=== PATIENT | female | born 1985 | race Caucasian/White ===

== ENCOUNTER 2016-07-10 10:07 | Emergency (ER) | payer SELFPAY ==
[~2016-07-10] VITALS: Ht 175.3 cm; Wt 100.0 kg
[~2016-07-10 10:07] MED LIST: CLON0.1T PO; GABA600T PO; IBUP800T23 PO; PROZ40CA PO; TRAZ300T2 PO
[2016-07-10 10:30] VITALS: BP 137/88; PULSE 86; RESP 18; TEMP 97.8; O2SAT 98
[2016-07-10] MEDS ORDERED: BUPIVACAINE HCL PF 0.25% 10 ML VIAL INFIL ONE (17:00)
[2016-07-10] MEDS ORDERED: KETOROLAC TROMETHAMINE 60 MG/2 ML (IM) VIAL IM ONE (17:00)
[2016-07-10] MEDS ORDERED: BUPIVACAINE HCL PF 0.25% 30 ML VIAL INFIL ONE (17:15)
[2016-07-10] MEDS ORDERED: PENI500T PO (18:45)
[2016-07-10] MEDS ORDERED: KETO10 PO (18:45)
--- NOTE | 2016-07-10 18:45 | PD ---
HPI Chief Complaint: Headache Time Seen by Provider: 16:41 Travel History International Travel<30 days: No Contact w/Intl Traveler<30days: No Traveled to known affect area: No History of Present Illness HPI Patient is a 31-year-old female complaining of pain to the left side of her jaw radiating up into her ear. She says this been going on for the past 4 days. She says she has some pain with swallowing, pain with eating. She has been taking naproxen without much relief of her pain. She denies fever or chills. She denies any coughing or congestion. PFSH Past Medical History Anemia: Yes Asthma: Yes Anxiety: Yes Depression: Yes Cardiovascular Problems: Yes (HTN) High Cholesterol: Yes Diminished Hearing: No Headaches: Yes Hypertension: Yes Neurologic: Yes (HX OF HEAD INJURY A CHILD) Respiratory: Yes Immunizations Current: Yes Seizures: Yes (PT REPORTS HAVING SEIZURES SINCE AGE 17, IS TAKING NO MEDS) ?: Not : 5 Para: 4 Miscarriage: 1 Past Surgical History Hysterectomy: Yes Neurologic Surgery: Yes (SPINAL TAP, CONCRETE PLASTER REMOVED FROM SKULL ) Social History Alcohol Use: No Tobacco Use: Yes (07/09 PPD) Substance Use: No Allergies-Medications (Allergen,Severity, Reaction): Coded Allergies: Aspirin (Verified Allergy, Severe, WHEEZING, SOB, 06/16/16) Darvocet-N 100 (Verified Allergy, Severe, Wheezing, SOB, 06/16/16) Reported Meds & Prescriptions Reported Meds & Active Scripts Active Penicillin V Potassium 500 Mg Tab 500 Mg PO Q6H 7 Days Ketorolac (Ketorolac Tromethamine) 10 Mg Tab 10 Mg PO Q6HR PRN Reported Ibuprofen 800 Mg Tab 800 Mg PO BID Trazodone (Trazodone HCl) 300 Mg Tab 200 Mg PO HS Prozac (Fluoxetine HCl) 40 Mg Cap 40 Mg PO DAILY Clonidine (Clonidine HCl) 0.1 Mg Tab 0.1 Mg PO DAILY Gabapentin 600 Mg Tab 600 Mg PO BID Review of Systems Except as stated in HPI: all other systems reviewed are Neg General / Constitutional: No: Fever, Chills Eyes: No: Blurred Vision HENT: Positive: Dental Difficulties Cardiovascular: No: Chest Pain or Discomfort Respiratory: No: Shortness of Breath Gastrointestinal: No: Nausea, Vomiting Genitourinary: No: Dysuria Skin: No Rash, No Change in Pigmentation Physical Exam Narrative GENERAL: Awake and alert in no acute distress. SKIN: Warm and dry. HEAD: Atraumatic. Normocephalic. EYES: Pupils equal and round. No scleral icterus. No injection or drainage. ENT: No nasal bleeding or discharge. Broken teeth on the left side of the mouth. No signs of abscess. NECK: Trachea midline. No JVD. CARDIOVASCULAR: Regular rate and rhythm. No murmur appreciated. RESPIRATORY: No accessory muscle use. Clear to auscultation. Breath sounds equal bilaterally. NEUROLOGICAL: Awake and alert. No obvious cranial nerve deficits. Motor grossly within normal limits. Normal speech. PSYCHIATRIC: Appropriate mood and affect; insight and judgment normal. Data Data Last Documented VS Vital Signs Date Time Temp Pulse Resp B/P Pulse Ox O2 Delivery O2 Flow Rate FiO2 07/10/16 19:05 79 18 147/79 98 07/10/16 19:00 Room Air 07/10/16 10:30 97.8 Orders Ketorolac Inj (Toradol Inj) (07/10/16 17:00) Bupivacaine Pf 0.25% Inj (Marcaine Pf 0. (07/10/16 17:00) Bupivacaine Pf 0.25% Inj (Marcaine Pf 0. (07/10/16 17:15) MDM Medical Decision Making Medical Screen Exam Complete: Yes Emergency Medical Condition: Yes Medical Record Reviewed: Yes Differential Diagnosis Dental caries versus dental fracture versus dental abscess versus dental infection Narrative Course Patient is a 31-year-old female who comes in complaining of dental pain. Exam shows broken teeth. No signs of abscess. Patient does not want any narcotic pain medication. Dental block performed by JOLIE. Patient given prescription for antibiotics. Advised she needs to follow-up with a dentist. Advised to return to the ED as needed for any worsening symptoms. Diagnosis Primary Impression: Dental infection Patient Instructions: Dental Abscess (ED), General Instructions Additional Instructions: Follow up with a dentist. Return as needed for any worsening symptoms. Scripts Penicillin V Potassium 500 Mg [id number] Mg PO Q6H 7 Days Ref 0 Prov:Karolina Davenport MD 07/10/16 Ketorolac 10 Mg Tab10 Mg PO Q6HR PRN (PAIN) #15 TAB Ref 0 Prov:Karolina Davenport MD 07/10/16 Disposition: 01 DISCHARGE HOME Condition: Stable Karolina Davenport MD Jul 10, 2016 18:45
[2016-07-10 19:05] VITALS: BP 147/79
--- NOTE | 2016-07-10 19:09 | PD ---
Physical Exam Date Seen by Provider: Jul 10, 2016 Time Seen by Provider: 19:05 Data Data Last Documented VS Vital Signs Date Time Temp Pulse Resp B/P Pulse Ox O2 Delivery O2 Flow Rate FiO2 07/10/16 19:05 79 18 147/79 98 07/10/16 19:00 Room Air 07/10/16 10:30 97.8 Orders Ketorolac Inj (Toradol Inj) (07/10/16 17:00) Bupivacaine Pf 0.25% Inj (Marcaine Pf 0. (07/10/16 17:00) Bupivacaine Pf 0.25% Inj (Marcaine Pf 0. (07/10/16 17:15) MDM Supervised Visit with ANGELINA: No Narrative Course I was asked by Dr. Davenport to administer a dental block to this patient with lower left dental pain. Please see her note for full history and physical. On my exam the patient is alert, oriented. She complains of left lower dental pain. No trismus. Airway patent. Uvula midline. Dental block was administered. Please see my procedure note for details. Dr. Davenport retains care of this patient. Please see her note for disposition. Procedures Procedure Narrative Inferior alveolar nerve block: 27-gauge needle was inserted on the medial aspect of the mandibular ramus. 3 cc of 0.25% Marcaine was instilled. The patient endorsed relief of pain within 15-20 seconds. Diagnosis Primary Impression: Dental infection Patient Instructions: General Instructions, Dental Abscess (ED) Departure Forms: Tests/Procedures Additional Instruction: Follow up with a dentist. Return as needed for any worsening symptoms. Scripts Penicillin V Potassium 500 Mg [id number] Mg PO Q6H 7 Days Ref 0 Prov:Karolina Davenport MD 07/10/16 Ketorolac 10 Mg Tab10 Mg PO Q6HR PRN (PAIN) #15 TAB Ref 0 Prov:Karolina Davenport MD 07/10/16 Disposition: 01 DISCHARGE HOME Condition: Stable Ami Lorenz Jul 10, 2016 19:09
== END 2016-07-10 19:06 | disposition home or self-care (01) ==
LOC: NEPE 10:07
DX: K04.7 Periapical abscess without sinus (principal); F17.210 Nicotine dependence, cigarettes, uncomplicated
CPT/HCPCS: 96372; 99283; J1885

== ENCOUNTER 2016-12-09 16:44 | Emergency (ER) | payer SELFPAY ==
[~2016-12-09] VITALS: Ht 170.2 cm; Wt 112.0 kg
[~2016-12-09 16:44] MED LIST changes: +KETO10 PO; +PENI500T PO
[2016-12-09 16:49] VITALS: BP 130/94; PULSE 94; RESP 16; TEMP 97.9; O2SAT 97
[2016-12-09] MEDS ORDERED: SODIUM CHLOR 0.9% 1000 ML INJ 1,000 ML IV SCH (17:06)
[2016-12-09 17:07] LABS: BLOOD, URINE LARGE (NEG); GLUCOSE,URINE NEG (NEG); KETONE, URINE NEG (NEG); NITRITE,URINE NEG (NEG); PH, URINE 5.5 (5.0-8.5)
[2016-12-09 17:10] LABS: METHOD OF COLLECTION CLEAN CATCH; URINE COLOR YELLOW (YELLW/STRAW)
[2016-12-09 17:11] LABS: COMMENT (UR) CULTURE INDICATED; CULTURE IF INDICATED CULTURE INDICATED
[2016-12-09] MEDS ORDERED: SODIUM CHLORIDE 0.9% FLUSH 10 ML FLUSH IV FLUSH PRN (17:15)
[2016-12-09] MEDS ORDERED: ONDANSETRON HCL 4 MG/2 ML VIAL IVP ONE (17:15)
[2016-12-09] MEDS ORDERED: ACETAMINOPHEN 325 MG TAB PO ONE (17:15)
--- NOTE | 2016-12-09 17:38 | PD ---
HPI Chief Complaint: Complaint Time Seen by Provider: 16:54 Travel History International Travel<30 days: No Contact w/Intl Traveler<30days: No Traveled to known affect area: No History of Present Illness HPI Patient is a 31-year-old female presents emergency department with dysuria for the past week followed by right greater than left flank pain. Patient states she's also noticed some blood in her urine. She has notable history of a hysterectomy in February 2016 for cancer. Unknown if this is uterine ovarian cancer. Was performed and [place]. Patient states she was also recommended to have chemotherapy the time that she had no insurance and therefore cannot afford. She is concerned that something might have "popped off" and causing her symptoms. She denies any fever but states that she does feel dehydrated and very weak. Patient also states that she is recovering drug addict and declines any narcotic medicine. Denies any diarrhea or constipation, denies any chest pain shortness of breath headache or loss of weight. PFSH Past Medical History Anemia: Yes Asthma: Yes Anxiety: Yes Depression: Yes Cardiovascular Problems: Yes (HTN) High Cholesterol: Yes Diminished Hearing: No Headaches: Yes Hypertension: Yes Neurologic: Yes (HX OF HEAD INJURY A CHILD) Respiratory: Yes Immunizations Current: Yes Seizures: Yes (PT REPORTS HAVING SEIZURES SINCE AGE 17, IS TAKING NO MEDS) Influenza Vaccination: No ?: Not : 5 Para: 4 Miscarriage: 1 Past Surgical History Hysterectomy: Yes Neurologic Surgery: Yes (SPINAL TAP, CONCRETE PLASTER REMOVED FROM SKULL ) Social History Alcohol Use: No Tobacco Use: Yes (1/2 PPD) Substance Use: No Allergies-Medications (Allergen,Severity, Reaction): Coded Allergies: Aspirin (Verified Allergy, Severe, WHEEZING, SOB, 12/09/16) Darvocet-N 100 (Verified Allergy, Severe, Wheezing, SOB, 12/09/16) Reported Meds & Prescriptions Reported Meds & Active Scripts Active Keflex (Cephalexin) 500 Mg Cap 500 Mg PO Q6H 7 Days Penicillin V Potassium 500 Mg Tab 500 Mg PO Q6H 7 Days Ketorolac (Ketorolac Tromethamine) 10 Mg Tab 10 Mg PO Q6HR PRN Reported Ibuprofen 800 Mg Tab 800 Mg PO BID Trazodone (Trazodone HCl) 300 Mg Tab 200 Mg PO HS Prozac (Fluoxetine HCl) 40 Mg Cap 40 Mg PO DAILY Clonidine (Clonidine HCl) 0.1 Mg Tab 0.1 Mg PO DAILY Gabapentin 600 Mg Tab 600 Mg PO BID Review of Systems Except as stated in HPI: all other systems reviewed are Neg Physical Exam Narrative GENERAL: Well-developed well-nourished no apparent distress, nontoxic appearance SKIN: Focused skin assessment warm/dry. HEAD: Atraumatic. Normocephalic. EYES: Pupils equal and round. No scleral icterus. No injection or drainage. ENT: No nasal bleeding or discharge. Mucous membranes pink and moist. NECK: Trachea midline. No JVD. CARDIOVASCULAR: Regular rate and rhythm. No murmur appreciated. RESPIRATORY: No accessory muscle use. Clear to auscultation. Breath sounds equal bilaterally. GASTROINTESTINAL: Abdomen soft, non-tender, nondistended. Hepatic and splenic margins not palpable. Moderate CVA tenderness on the right, negative on the left. Abdomen is benign, no rebound no percussive tenderness. MUSCULOSKELETAL: No obvious deformities. No clubbing. No cyanosis. No edema. NEUROLOGICAL: Awake and alert. No obvious cranial nerve deficits. Motor grossly within normal limits. Normal speech. PSYCHIATRIC: Appropriate mood and affect; insight and judgment normal. Data Data Last Documented VS Vital Signs Date Time Temp Pulse Resp B/P Pulse Ox O2 Delivery O2 Flow Rate FiO2 12/09/16 18:00 98 12/09/16 16:49 97.9 94 16 130/94 Orders Urinalysis - C+S If Indicated (12/09/16 16:52) Complete Blood Count With Diff (12/09/16 17:06) Comprehensive Metabolic Panel (12/09/16 17:06) Lipase (12/09/16 17:06) Prothrombin Time / Inr (Pt) (12/09/16 17:06) Act Partial Throm Time (Ptt) (12/09/16 17:06) Iv Access Insert/Monitor (12/09/16 17:06) Ecg Monitoring (12/09/16 17:06) Oximetry (12/09/16 17:06) Ondansetron Inj (Zofran Inj) (12/09/16 17:15) Sodium Chlor 0.9% 1000 Ml Inj (Ns 1000 M (12/09/16 17:06) Sodium Chloride 0.9% Flush (Ns Flush) (12/09/16 17:15) Ed Urine Pregnancytest Poc (12/09/16 17:06) Acetaminophen (Tylenol) (12/09/16 17:15) Urine Culture (12/09/16 16:50) Ct Abd/Pel W Iv Contrast(Rout) (12/09/16 ) Iohexol 350 Inj (Omnipaque 350 Inj) (12/09/16 18:25) Cephalexin (Keflex) (12/09/16 18:45) Ketorolac Inj (Toradol Inj) (12/09/16 19:00) Labs Laboratory Tests Test 12/09/16 12/09/16 16:50 17:40 Urine Collection Type CLEAN CATCH Urine Color YELLOW Urine Turbidity CLEAR Urine pH 5.5 Urine Specific [place] 1.021 Urine Protein 30 mg/dL Urine Glucose (UA) NEG mg/dL Urine Ketones NEG mg/dL Urine Occult Blood LARGE Urine Nitrite NEG Urine Bilirubin NEG Urine Leukocyte Esterase TRACE Urine RBC 10-14 /hpf Urine WBC 9-14 /hpf Microscopic Urinalysis Comment CULTURE INDICATED White Blood Count 10.1 TH/MM3 Red Blood Count 4.71 MIL/MM3 Hemoglobin 14.2 GM/DL Hematocrit 41.9 % Mean Corpuscular Volume 88.8 FL Mean Corpuscular Hemoglobin 30.1 PG Mean Corpuscular Hemoglobin 33.9 % Concent Red Cell Distribution Width 12.6 % Platelet Count 165 TH/MM3 Mean Platelet Volume 9.5 FL Neutrophils (%) (Auto) 73.6 % Lymphocytes (%) (Auto) 20.3 % Monocytes (%) (Auto) 4.5 % Eosinophils (%) (Auto) 1.3 % Basophils (%) (Auto) 0.3 % Neutrophils # (Auto) 7.5 TH/MM3 Lymphocytes # (Auto) 2.0 TH/MM3 Monocytes # (Auto) 0.5 TH/MM3 Eosinophils # (Auto) 0.1 TH/MM3 Basophils # (Auto) 0.0 TH/MM3 CBC Comment DIFF FINAL Differential Comment Prothrombin Time 10.7 SEC Prothromb Time International 1.0 RATIO Ratio Activated Partial 26.8 SEC Thromboplast Time Sodium Level 138 MEQ/L Potassium Level 3.7 MEQ/L Chloride Level 103 MEQ/L Carbon Dioxide Level 28.0 MEQ/L Anion Gap 7 MEQ/L Blood Urea Nitrogen 11 MG/DL Creatinine 0.78 MG/DL Estimat Glomerular Filtration 86 ML/MIN Rate Random Glucose 87 MG/DL Calcium Level 9.1 MG/DL Total Bilirubin 0.5 MG/DL Aspartate Amino Transf 100 U/L (AST/SGOT) Alanine Aminotransferase 154 U/L (ALT/SGPT) Alkaline Phosphatase 91 U/L Total Protein 7.9 GM/DL Albumin 3.7 GM/DL Lipase 104 U/L [facility] Medical Decision Making Medical Screen Exam Complete: Yes Emergency Medical Condition: Yes Differential Diagnosis Plan for his, cystitis, kidney stone, acute kidney injury, sepsis seems unlikely. Narrative Course Patient is a 31-year-old female presents emergency department with signs symptoms consistent with pyelonephritis. She does have CT findings consistent with cystitis: Last 24 hours Impressions Abdomen/Pelvis CT 12/09/16 0000 Signed Impressions: Service Date/Time: Friday, December 09, 2016 18:07 - CONCLUSION: 1. Status post hysterectomy. 2. Questionable wall thickening of the urinary bladder, possibly related to cystitis. Francisco Javier Carson MD Discussed the laboratory results with the patient including ALT to AST 154-100 and recommended follow-up with a primary care physician [facility] for testing for hepatitis. Urine does show rbc's and white blood cells, the patient is a period now. No indication for sepsis. Patient is suitable for outpatient therapy. Discussed return to ED criteria. Diagnosis Primary Impression: Pyelonephritis Referrals: Sierra King MD Med/Other Pt SpecificInfo: Prescription(s) given Scripts Cephalexin (Keflex)500 Mg [id number] Mg PO Q6H 7 Days Ref 0 Prov:Seth Tong MD 12/09/16 Disposition: 01 DISCHARGE HOME Condition: Stable Seth Tong MD Dec 09, 2016 17:38
[2016-12-09 17:55] LABS: AUTOMATED NEUTROPHIL # 7.5 TH/MM3 (1.8-7.7); BASOPHIL % 0.3 % (0.0-2.0); EOSINOPHIL # 0.1 TH/MM3 (0-0.4); EOSINOPHIL % 1.3 % (0.0-4.0); HEMATOCRIT 41.9 % (35.0-46.0); HEMO FLAGS DIFF FINAL; LYMPH % 20.3 % (9.0-44.0); MEAN CELL VOLUME 88.8 FL (80.0-100.0); MEAN CORPUSCULAR HEMOGLOBIN 30.1 PG (27.0-34.0); MEAN CORPUSCULAR HGB CONC 33.9 % (32.0-36.0); MONO % 4.5 % (0.0-8.0); NEUT % 73.6 % (16.0-70.0); PLATELET COUNT 165 TH/MM3 (150-450); RED BLOOD COUNT 4.71 MIL/MM3 (4.00-5.30); RED CELL DISTRIBUTION WIDTH 12.6 % (11.6-17.2); WHITE BLOOD COUNT 10.1 TH/MM3 (4.0-11.0)
[2016-12-09 18:00] VITALS: O2SAT 98
[2016-12-09 18:04] LABS: CHLORIDE 103 MEQ/L (98-107); POTASSIUM 3.7 MEQ/L (3.5-5.1); SODIUM (NA) 138 MEQ/L (136-145)
[2016-12-09 18:08] LABS: ANION GAP 7 MEQ/L (5-15); BLOOD UREA NITROGEN 11 MG/DL (7-18)
[2016-12-09 18:09] LABS: APTT (PATIENT) 26.8 SEC (24.3-30.1); PROTHROMBIN TIME - PATIENT 10.7 SEC (9.8-11.6)
[2016-12-09 18:11] LABS: ALT (GPT) 154 U/L (10-53); AST (GOT) 100 U/L (15-37); GLOMERULAR FILTRATION RATE 86 ML/MIN (>89)
[2016-12-09 18:12] LABS: TOTAL BILIRUBIN ADULT 0.5 MG/DL (0.2-1.0)
[2016-12-09 18:14] LABS: ALKALINE PHOSPHATASE 91 U/L (45-117)
[2016-12-09] MEDS ORDERED: IOHEXOL 350 MG/ML 10 ML VIAL (for RAD DIAG) IV ONE (18:25)
[2016-12-09] MEDS ORDERED: CEPH-460 PO (18:44)
--- NOTE | 2016-12-09 18:44 | RADHPO ---
EXAM DATE/TIME: 12/09/2016 18:07 [facility] COMPARISON: No previous studies available for comparison. INDICATIONS : Low abdominal pain radiating to back with painful urination. IV CONTRAST: 95 cc Omnipaque 350 (iohexol) IV ORAL CONTRAST: No oral contrast ingested. RADIATION DOSE: 22.34 CTDIvol (mGy) MEDICAL HISTORY : Hypertension. Seizures. SURGICAL HISTORY : Hysterectomy. ENCOUNTER: Initial ACUITY: 4 - 6 days PAIN SCALE: 7/10 LOCATION: lower quadrant TECHNIQUE: Volumetric scanning of the abdomen and pelvis was performed. Using automated exposure control and ad justment of the mA and/or kV according to patient size, radiation dose was kept as low as reasonably achievable to obtain optimal diagnostic quality images. FINDINGS: LOWER LUNGS: The visualized lower lungs are clear. LIVER: Homogeneous density without lesion. There is no dilation of the biliary tree. No calcified gallston es. SPLEEN: Normal size without lesion. PANCREAS: Within normal limits. KIDNEYS: Normal in size and shape. There is no mass, stone or hydronephrosis. ADRENAL GLANDS: Within normal limits. VASCULAR: There is no aortic aneurysm. BOWEL/MESENTERY: The stomach, small bowel, and colon demonstrate no acute abnormality. There is no free intraperitone al air or fluid. ABDOMINAL WALL: Within normal limits. RETROPERITONEUM: There is no lymphadenopathy. BLADDER: Questionable wall thickening. REPRODUCTIVE: Status post hysterectomy. INGUINAL: There is no lymphadenopathy or hernia. MUSCULOSKELETAL: Within normal limits for patient age. CONCLUSION: 1. Status post hysterectomy. 2. Questionable wall thickening of the urinary bladder, possibly related to cystitis. Francisco Javier Carson MD on December 09, 2016 at 18:39 Board Certified Radiologist. This report was verified electronically.
[2016-12-09] MEDS ORDERED: CEPHALEXIN MONOHYDRATE 500 MG CAP PO ONE (18:45)
[2016-12-09] MEDS ORDERED: KETOROLAC TROMETHAMINE 30 MG/ML (IVP) VIAL IV PUSH ONE (19:00)
== END 2016-12-09 19:15 | disposition home or self-care (01) ==
LOC: PHED 16:44
DX: N12 Tubulo-interstitial nephritis, not specified as acute or chronic (principal); R53.1 Weakness; I10 Essential (primary) hypertension; E78.00 Pure hypercholesterolemia, unspecified; F17.200 Nicotine dependence, unspecified, uncomplicated; Z98.890 Other specified postprocedural states; Z86.2 Personal history of diseases of the blood and blood-forming organs and certain disorders involving the immune mechanism; Z87.09 Personal history of other diseases of the respiratory system; Z86.59 Personal history of other mental and behavioral disorders; Z86.79 Personal history of other diseases of the circulatory system; Z86.69 Personal history of other diseases of the nervous system and sense organs
CPT/HCPCS: 74177; 80053; 81001; 83690; 85025; 85610; 85730; 87086; 96361; 96374; 96375; 99285; J1885; J2405; J7030; Q9967

== ENCOUNTER 2017-04-02 12:23 | Emergency (ER) | payer SELFPAY ==
[~2017-04-02] VITALS: Ht 172.7 cm; Wt 115.0 kg
[~2017-04-02 12:23] MED LIST changes: +CEPH-460 PO
[2017-04-02 12:24] VITALS: BP 128/91; PULSE 83; RESP 16; TEMP 98.2; O2SAT 96
--- NOTE | 2017-04-02 12:32 | PD ---
Physical Exam Time Seen by Provider: 12:30 Narrative 31-year-old female with complaint of feeling anxious having a panic attack. Reports chest pain and shortness of breath on and off for the past 3 days. Says she feels like somebody is choking her constantly. Reports nasal congestion and coughing up green phlegm. Denies wheezing. Denies history of asthma. Reports tobacco use. Patient seen in triage. Vital signs reviewed. Patient taken to medical bed. Data Data Last Documented VS Vital Signs Date Time Temp Pulse Resp B/P (MAP) Pulse Ox O2 Delivery O2 Flow Rate FiO2 04/02/17 12:24 98.2 83 16 128/91 (103) 96 MDM Supervised Visit with ANGELINA: Annelise Eaton Apr 02, 2017 12:32
--- NOTE | 2017-04-02 12:41 | PD ---
HPI . panic attack, chest pain, shortness of breath x 3 days Chief Complaint: Anxiety Time Seen by Provider: 12:34 Travel History International Travel<30 days: No Contact w/Intl Traveler<30days: No Traveled to known affect area: No History of Present Illness HPI 31 yr old female here with c/o chest pain and some occasional sob for 3 days. She says she feels like she is having a panic attack that won't go away. She decided to come in because her symptoms have not really subsided over the past 3 days. She used to take medications for her anxiety and depression, but has not had them in over 1 mt. She denies any nausea, vomiting, diaphoresis or other issues. PFSH Past Medical History Anemia: Yes Asthma: Yes Anxiety: Yes Depression: Yes Cardiovascular Problems: Yes (HTN) High Cholesterol: Yes Diminished Hearing: No Headaches: Yes Hypertension: Yes Neurologic: Yes (HX OF HEAD INJURY A CHILD) Respiratory: Yes Immunizations Current: Yes Seizures: Yes (PT REPORTS HAVING SEIZURES SINCE AGE 17, IS TAKING NO MEDS) ?: Not : 5 Para: 4 Miscarriage: 1 Past Surgical History Hysterectomy: Yes Neurologic Surgery: Yes (SPINAL TAP, CONCRETE PLASTER REMOVED FROM SKULL ) Social History Alcohol Use: No Tobacco Use: Yes (/ PPD) Substance Use: No Allergies-Medications (Allergen,Severity, Reaction): Coded Allergies: acetaminophen (Unverified Allergy, Severe, Wheezing, SOB, 02/19/17) aspirin (Unverified Allergy, Severe, WHEEZING, SOB, 02/19/17) propoxyphene (Unverified Allergy, Severe, Wheezing, SOB, 02/19/17) Reported Meds & Prescriptions Reported Meds & Active Scripts Active Keflex (Cephalexin) 500 Mg Cap 500 Mg PO Q6H 7 Days Penicillin V Potassium 500 Mg Tab 500 Mg PO Q6H 7 Days Ketorolac (Ketorolac Tromethamine) 10 Mg Tab 10 Mg PO Q6HR PRN Reported Ibuprofen 800 Mg Tab 800 Mg PO BID Trazodone (Trazodone HCl) 300 Mg Tab 200 Mg PO HS Prozac (Fluoxetine HCl) 40 Mg Cap 40 Mg PO DAILY Clonidine (Clonidine HCl) 0.1 Mg Tab 0.1 Mg PO DAILY Gabapentin 600 Mg Tab 600 Mg PO BID Review of Systems General / Constitutional: No: Fever Eyes: No: Visual changes HENT: No: Headaches Cardiovascular: Positive: Chest Pain or Discomfort Respiratory: Positive: Cough, Shortness of Breath Gastrointestinal: No: Abdominal Pain Genitourinary: No: Dysuria Musculoskeletal: No: Pain Skin: No Rash Neurologic: No: Weakness Psychiatric: No: Depression Endocrine: No: Polydipsia Hematologic/Lymphatic: No: Easy Bruising Physical Exam Narrative GENERAL: AAO x 3, no acute distress, Well-nourished, well-developed patient. SKIN: Warm and dry. No visible rashes or bruising. HEAD: Normocephalic and atraumatic. EYES: No scleral icterus. No injection or drainage. ENT: No nasal drainage noted. Mucous membranes pink. Airway patent. Large tonsils bilaterally, no erythema, exudates or edema. TMs normal bilaterally. No frontal or maxillary sinus tenderness. NECK: Supple, trachea midline. No JVD. No lymphadenopathy CARDIOVASCULAR: Regular rate and rhythm without murmurs, gallops, or rubs. RESPIRATORY: Breath sounds equal bilaterally. No accessory muscle use. No rhonchi or rales. GASTROINTESTINAL: Abdomen soft, non-tender, nondistended. no rebound or guarding EXTREMITIES: No cyanosis or edema. BACK: No obvious deformity. No CVA tenderness. 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 Data Data Last Documented VS Vital Signs Date Time Temp Pulse Resp B/P (MAP) Pulse Ox O2 Delivery O2 Flow Rate FiO2 04/02/17 12:24 98.2 83 16 128/91 (103) 96 Orders Orders Electrocardiogram (04/02/17 ) Chest, Single Ap (04/02/17 ) Lorazepam (Ativan) (04/02/17 13:45) MDM Medical Decision Making Medical Screen Exam Complete: Yes Emergency Medical Condition: Yes Medical Record Reviewed: Yes Differential Diagnosis anxiety, less likely ACS, less likely pneumonia Narrative Course 31 yr old female here with c/o chest pain, sob and coughing x 3 days. Exam is unremarkable. I discussed with Dr. Landis and we will check CXR and EKG. I do not suspect ACS and don't think cardiac enzymes would be necessary. Patient not in distress and looks well. Vitals are WNL. Patient has longstanding hx of anxiety and this seems to be more anxiety related. She has not been on her meds for quite some time and needs to see her PCP/psych for medication refills. EKG reviewed by Dr. Landis. CXR normal. Discussed results with patients. I recommend she follow-up with her primary care provider psychiatry for further medication refills to treat her anxiety. I advised first full-term worsen, go to the nearest emergency department. Diagnosis Primary Impression: Atypical chest pain Additional Impression: Anxiety Patient Instructions: General Instructions Additional Instructions: Follow up with your primary care doctor or psychiatrist. Please return to emergency department if your symptoms return or worsen. Follow up with your primary care provider. Med/Other Pt SpecificInfo: No Change to Meds Disposition: 01 DISCHARGE HOME Condition: Stable Elaine Bahena Apr 02, 2017 12:41
--- NOTE | 2017-04-02 13:24 | RADRPT ---
EXAM DATE/TIME: 04/02/2017 13:05 [facility] COMPARISON: CHEST SINGLE AP, June 16, 2016, 18:30. INDICATIONS : Short of breath with chest tightness. MEDICAL HISTORY : None. SURGICAL HISTORY : None. ENCOUNTER: Initial ACUITY: 2 days PAIN SCORE: 1/10 LOCATION: Bilateral chest FINDINGS: A single view of the chest demonstrates the lungs to be symmetrically aerated without evidence of mas s, infiltrate or effusion. The cardiomediastinal contours are unremarkable. Osseous structures are intact. CONCLUSION: 1. No acute cardiopulmonary findings. Celso Kingston MD on April 02, 2017 at 13:22 Board Certified Radiologist. This report was verified electronically.
[2017-04-02] MEDS ORDERED: LORazepam 1 MG TAB PO ONE (13:45)
[2017-04-02 13:57] VITALS: BP 158/82
--- NOTE | 2017-04-02 14:38 | PD ---
Data Data Last Documented VS Vital Signs Date Time Temp Pulse Resp B/P (MAP) Pulse Ox O2 Delivery O2 Flow Rate FiO2 04/02/17 13:57 79 18 158/82 (107) 99 04/02/17 12:24 98.2 Orders Orders Electrocardiogram (04/02/17 ) Chest, Single Ap (04/02/17 ) Lorazepam (Ativan) (04/02/17 13:45) MDM Supervised Visit with ANGELINA: Yes Narrative Course The history, exam, and medical decision-making in the associated mid-level provider note were completed with my assistance. I reviewed and agree with the findings presented. I attest that I had a [id number] encounter with the patient on the same day, and personally performed and documented my assessment and findings in the medical record. *My assessment and Findings: 31 year-old woman presents to the emergency department with cough cold symptoms , chest pain, anxiety. Looks well. X-ray and EKG are unremarkable. Recommend supportive treatment. I don't think she has a PE. No evidence of ACS. Diagnosis Primary Impression: Atypical chest pain Additional Impression: Anxiety Patient Instructions: General Instructions Departure Forms: Tests/Procedures Additional Instruction: Follow up with your primary care doctor or psychiatrist. Please return to emergency department if your symptoms return or worsen. Follow up with your primary care provider. Disposition: 01 DISCHARGE HOME Condition: Stable Hardy Landis MD Apr 02, 2017 14:38
--- NOTE | 2017-04-03 15:37 | EKG ---
Date Performed: 04/02/2017 Time Performed: 12:49:57 PTAGE: 31 years EKG: SINUS BRADYCARDIA BORDERLINE ECG PREVIOUS TRACING : 06/16/2016 18.59 Compared to prior tracing no significant change DOCTOR: Antwan Geiger Interpretating Date/Time 04/03/2017 15:36:26
== END 2017-04-02 13:59 | disposition home or self-care (01) ==
LOC: NEPD 12:23
DX: R07.89 Other chest pain (principal); F41.9 Anxiety disorder, unspecified; R00.0 Tachycardia, unspecified; I10 Essential (primary) hypertension; J45.909 Unspecified asthma, uncomplicated; D64.9 Anemia, unspecified
CPT/HCPCS: 71010; 93005; 99284

== ENCOUNTER 2017-04-19 12:56 | Emergency (ER) | payer SELFPAY ==
[~2017-04-19] VITALS: Ht 170.2 cm; Wt 103.0 kg
[2017-04-19] MEDS ORDERED: GADODIAMIDE PF 287 MG/ML 20 ML VIAL (for RAD MRI) IVCONTRAST ONE (12:57)
[2017-04-19 12:59] VITALS: BP 123/82; PULSE 99; RESP 14; TEMP 98.4; O2SAT 99
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
[2017-04-19 16:46] LABS: AUTOMATED NEUTROPHIL # 6.7 TH/MM3 (1.8-7.7); BASOPHIL % 0.3 % (0.0-2.0); EOSINOPHIL # 0.2 TH/MM3 (0-0.4); EOSINOPHIL % 1.7 % (0.0-4.0); HEMATOCRIT 43.5 % (35.0-46.0); HEMO FLAGS DIFF FINAL; LYMPH % 25.5 % (9.0-44.0); LYMPHOCYTE # 2.5 TH/MM3 (1.0-4.8); MEAN CELL VOLUME 90.5 FL (80.0-100.0); MEAN CORPUSCULAR HEMOGLOBIN 30.5 PG (27.0-34.0); MEAN CORPUSCULAR HGB CONC 33.7 % (32.0-36.0); MONO % 4.3 % (0.0-8.0); NEUT % 68.2 % (16.0-70.0); PLATELET COUNT 186 TH/MM3 (150-450); RED BLOOD COUNT 4.81 MIL/MM3 (4.00-5.30); RED CELL DISTRIBUTION WIDTH 13.2 % (11.6-17.2); WHITE BLOOD COUNT 9.8 TH/MM3 (4.0-11.0)
[2017-04-19 16:54] LABS: BICARBONATE 27.6 MEQ/L (21.0-32.0); POTASSIUM 4.1 MEQ/L (3.5-5.1)
[2017-04-19] MEDS ORDERED: LORazepam 2 MG/ML VIAL IV PUSH ONE (17:15)
--- NOTE | 2017-04-19 18:20 | RADRPT ---
EXAM DATE/TIME: 04/19/2017 17:32 [facility] COMPARISON: MRA BRAIN W/O CONTRAST, April 19, 2017, 17:32. INDICATIONS : Blurred vision. CONTRAST: 20 cc Omniscan (gadodiamide) IV MEDICAL HISTORY : None. SURGICAL HISTORY : None. ENCOUNTER: Initial ACUITY: 1 day PAIN SCORE: 0/10 LOCATION: cranial TECHNIQUE: Multiplanar, multisequence MRI of the brain was performed both prior to and following the administrat ion of paramagnetic contrast. FINDINGS: CEREBRUM: The ventricles are normal for age. No evidence of midline shift, mass lesion, hemorrhage or acute in farction. No extraaxial fluid collections are seen. There is an empty sella configuration. The supr asellar cistern is normal in configuration. WHITE MATTER: No significant signal abnormalities are seen in the white matter. POSTERIOR FOSSA: The cerebellum and brainstem are intact. The 4th ventricle is midline. The cerebellopontine angle is unremarkable. The cerebellar tonsils are normal in position. DIFFUSION IMAGING: No focal areas of restricted diffusion are seen. No evidence of acute infarction. EXTRACRANIAL: The visualized portions of the orbits are unremarkable. There is mucosal disease in the left maxillar y and ethmoid sinuses. POST-CONTRAST: No abnormal areas of parenchymal or dural enhancement. No evidence of blood-brain barrier breakdown. CONCLUSION: No acute intracranial abnormality is seen. There is an empty sella configuration. There is left maxil orion and ethmoid sinus disease. Dylon Spangler MD on April 19, 2017 at 18:15 Board Certified Radiologist. This report was verified electronically.
--- NOTE | 2017-04-19 18:22 | RADRPT ---
EXAM DATE/TIME: 04/19/2017 17:32 [facility] COMPARISON: No previous studies available for comparison. INDICATIONS : Blurred vision. MEDICAL HISTORY : None. SURGICAL HISTORY : None. ENCOUNTER: Initial ACUITY: 1 day PAIN SCORE: 0/10 LOCATION: cranial Please note a normal MRA of the brain does not entirely exclude the possibility of a small aneurysm, nor the possibility of distal intracranial vessel disease. TECHNIQUE: 3D time of flight MRA was performed. Source images, multiplanar STS MIP, and 3D volume MIP reconstru ctions were reviewed. FINDINGS: There is excellent visualization of the major intracranial arteries out to the second-order branch ve ssels. There is no evidence for aneurysm, vessel truncation or stenosis, and no evidence for vascula r malformation. There is absence of the right A1 segment of the anterior cerebral artery. This is a normal variant. T he bilateral A2 segments are normal. There is a patent anterior communicating artery. There is a lef t posterior communicating artery. A right posterior communicating artery is not seen. No aneurysm is seen. CONCLUSION: Variant anatomy. No aneurysm is seen. Dylon Spangler MD on April 19, 2017 at 18:19 Board Certified Radiologist. This report was verified electronically.
--- NOTE | 2017-04-19 18:24 | RADRPT ---
EXAM DATE/TIME: 04/19/2017 17:32 [facility] COMPARISON: No previous studies available for comparison. INDICATIONS : Blurred vision. CONTRAST: 20 cc Omniscan (gadodiamide) IV MEDICAL HISTORY : None. SURGICAL HISTORY : None. ENCOUNTER: Initial ACUITY: 1 day PAIN SCORE: 0/10 LOCATION: cranial Percent stenosis is calculated using the diameter of the stenotic region over the diameter of the nor mal distal internal carotid artery. TECHNIQUE: Bolus infused MRA of the extracranial circulation was performed using a neurovascular coil. Post pro cessing was performed including rotating subvolume maximum intensity projections of each carotid breonna ry, rotating full volume maximum intensity projections of both carotid arteries, sagittal and coronal sliding thin slab reformations of each carotid artery, and left oblique sliding thin slab reformatio n through the aortic arch to include the origin of the arch branch vessels. FINDINGS: AORTIC ARCH: The left common carotid artery arises from the base of the right brachiocephalic artery. This a kavita l variant. No evidence of ostial narrowing. RIGHT CAROTID: The common carotid artery is intact. The carotid bulb has a normal configuration without ulceration or narrowing. The internal carotid artery lumen is smooth without stenosis. The external carotid ar bautista is intact. LEFT CAROTID: The common carotid artery is intact. The carotid bulb has a normal configuration without ulceration or narrowing. The internal carotid artery lumen is smooth without stenosis. The external carotid ar bautista is intact. VERTEBRALS: The vertebral arteries have a symmetric diameter. No stenotic lesions are seen. CONCLUSION: Normal examination. Dylon Spangler MD on April 19, 2017 at 18:21 Board Certified Radiologist. This report was verified electronically.
== END 2017-04-19 18:53 | disposition home or self-care (01) ==
LOC: NEPE 12:56
DX: H57.02 Anisocoria (principal); D64.9 Anemia, unspecified; F41.9 Anxiety disorder, unspecified; F32.9 Major depressive disorder, single episode, unspecified; I10 Essential (primary) hypertension; E78.5 Hyperlipidemia, unspecified; G40.909 Epilepsy, unspecified, not intractable, without status epilepticus; Z79.899 Other long term (current) drug therapy
CPT/HCPCS: 70544; 70548; 70553; 80048; 85025; 96374; 99285; A9579; J2060

== ENCOUNTER 2017-07-27 00:48 | Emergency (ER) | payer SELFPAY ==
[2017-07-27] MEDS: LORazepam 1 MG TAB PO (02:08)
== END 2017-07-27 04:39 | disposition home or self-care (01) ==
LOC: NEPE 00:48
DX: F41.9 Anxiety disorder, unspecified (principal); F32.9 Major depressive disorder, single episode, unspecified; E78.00 Pure hypercholesterolemia, unspecified; J45.909 Unspecified asthma, uncomplicated; I10 Essential (primary) hypertension; F17.200 Nicotine dependence, unspecified, uncomplicated
CPT/HCPCS: 71045; 93005; 99284

== ENCOUNTER 2017-09-05 13:28 | Emergency (ER) | payer SELFPAY ==
[~2017-09-05] VITALS: Ht 172.7 cm; Wt 104.0 kg
[~2017-09-05 13:28] MED LIST changes: +BUPR8SUB SL; -CEPH-460 PO; -CLON0.1T PO; -GABA600T PO; -IBUP800T23 PO; -KETO10 PO; -PENI500T PO; -PROZ40CA PO; -TRAZ300T2 PO
[2017-09-05 13:44] VITALS: BP 140/70; PULSE 98; RESP 17; TEMP 98; O2SAT 98
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
== END 2017-09-05 14:45 | disposition home or self-care (01) ==
LOC: NEPK 13:28
DX: B34.9 Viral infection, unspecified (principal)
CPT/HCPCS: 99281